=== PATIENT | female | born 1985 | race Two or more races ===

== ENCOUNTER 2018-09-14 14:13 | Outpatient (CLI) | payer OTHER | END 2018-09-14 15:25 | disposition home or self-care (01) | LOC: LAB 14:13 | DX: R05 Cough (principal) ==

== ENCOUNTER 2019-02-12 15:31 | Inpatient (IN) | payer OTHER ==
[~2019-02-12] VITALS: Ht 165.1 cm; Wt 2.7 kg
[2019-02-24] MEDS ORDERED: PRENATAL TABLE1 EAC1 PO (12:46)
[2019-02-24] MEDS ORDERED: FOLIC ACID1 MG PO (12:47)
[2019-02-27] MEDS ORDERED: OXYC1TAB9 PO (10:17)
[2019-02-27] MEDS ORDERED: KETOROLAC TROME10 MG PO (10:18)
== END 2019-02-27 11:28 | DRG 788 ==
LOC: SURG 02-19 12:00 → OB/GYN 02-24 12:16 → LDR 02-24 12:16 → O/R 02-24 17:02 → OB/GYN 02-24 17:14
PROVIDERS: Obstetrics & Gynecology; ADMIT Obstetrics & Gynecology Maternal & Fetal Medicine
PROC: 0UB00ZZ Excision of Right Ovary, Open Approach (ICD-10-PCS; 2019-02-24)
PROC: 4A1HXCZ Monitoring of Products of Conception, Cardiac Rate, External Approach (ICD-10-PCS; 2019-02-24)
PROC: 4A033R1 Measurement of Arterial Saturation, Peripheral, Percutaneous Approach (ICD-10-PCS; 2019-02-24)
PROC: 10D00Z1 Extraction of Products of Conception, Low, Open Approach (ICD-10-PCS; principal; 2019-02-24 13:00)
DX: O32.1XX0 Maternal care for breech presentation, not applicable or unspecified (principal); O34.83 Maternal care for other abnormalities of pelvic organs, third trimester; N83.291 Other ovarian cyst, right side; Z3A.38 38 weeks gestation of pregnancy; Z37.0 Single live birth